=== PATIENT | male | born 1945 | race Caucasian/White ===

== ENCOUNTER 2020-08-20 17:19 | Emergency (ER) | payer MEDICARE ==
[2020-08-20 17:20] VITALS: TEMP 97.6
[2020-08-20 17:48] LABS: BASO # 0.1 (0.0-0.2); BASO % 1.4 % (0.0-2.0); EOS # 0.5 (0.0-0.7); EOS % 4.6 % (0-4.0); GRAN # 3.6 (1.4-6.5); GRAN % 34.6 % (42.2-75.2); HEMATOCRIT 39.2 % (42.0-52.0); HEMOGLOBIN 13.3 g/dl (13.5-18.0); LYMPH # 4.7 (1.2-3.4); MEAN CELL VOLUME 103 fl (80.0-100.0); MEAN CORPUSCULAR HEMOGLOBIN 35 pg (27.0-31.0); MEAN CORPUSCULAR HGB CONC 34 g/dl (33.0-37.0); MEAN PLATELET VOLUME 9.4 fl (7.4-10.4); MONO # 1.4 (0.1-0.6); MONO % 13.7 % (1.7-9.3); PLATELET COUNT 182 K/mm3 (130-400); RED BLOOD COUNT 3.82 M/mm3 (4.20-5.60); REDCELL DISTRIBUTION WIDTH-CV 12.4 % (11.5-14.5)
[2020-08-20 17:56] LABS: INR 0.9 (0.8-3.0); PROTHROMBIN TIME 10.3 SECONDS (9.7-12.8)
[2020-08-20 17:58] LABS: PARTIAL THROMBOPLASTIN TIME 31.7 SECONDS (26.0-37.0)
[2020-08-20 18:02] LABS: ALBUMIN 3.9 gm/dL (3.5-5.0); ALKALINE PHOSPHATASE 112 U/L (50-136); ANION GAP 14 mmol/L (7-16); AST,SGOT 49 U/L (15-37); BILIRUBIN,TOTAL 0.5 mg/dL (0.0-1.0); BLOOD UREA NITROGEN 6 mg/dL (9-20); CALCIUM 8.4 mg/dL (8.4-10.2); CARBON DIOXIDE 15 mmol/L (22-30); CHLORIDE 103 mmol/L (98-107); GLUCOSE 156 mg/dL (74-106); PHOSPHOROUS 4.6 mg/dL (2.5-4.5); POTASSIUM 4.3 mmol/L (3.4-5.0); SODIUM 132 mmol/L (137-145); TOTAL PROTEIN 6.7 gm/dL (6.4-8.2)
[2020-08-20 18:04] LABS: ALCOHOL(ethanol),MEDICAL < 10 mg/dL; C-REACTIVE PROTEIN < 0.5 mg/dL (0.0-0.9)
[2020-08-20 18:06] LABS: ALANINE AMINOTRANSFERASE 21 U/L (4-49)
[2020-08-20 18:11] LABS: TROPONIN-I 0.015 ng/mL (0.000-0.035)
[2020-08-20 18:16] LABS: PROLACTIN 96.9 ng/mL (3.7-17.9)
[2020-08-20 18:18] LABS: COLLECTION METHOD CATHETER
[2020-08-20] MEDS ORDERED: MAG-OX 400400 MG/TAB PO (18:20)
[2020-08-20] MEDS ORDERED: KLOR-CON20 MEQ PO (18:20)
[2020-08-20] MEDS ORDERED: ASPIRIN 81M81 MG/TA2 PO (18:21)
[2020-08-20] MEDS ORDERED: ONE-A-DAY ESSE1 EACH PO (18:21)
[2020-08-20] MEDS ORDERED: NATURE'S BLEND100 M2 PO (18:21)
[2020-08-20] MEDS ORDERED: LUTEIN20 M1 PO (18:21)
[2020-08-20] MEDS ORDERED: TYLENOL 325MG325 MG PO (18:22)
[2020-08-20] MEDS ORDERED: VITAMINE200 (18:22)
[2020-08-20] MEDS ORDERED: VITAMIN C500 MG PO (18:22)
[2020-08-20 18:28] LABS: PH 6 (5-8); SQUAMOUS EPITHELIAL None Seen /hpf; URINE APPEARANCE Hazy; URINE BACTERIA Moderate /hpf; URINE BILIRUBIN Negative (NEGATIVE); URINE BLOOD Negative (NEGATIVE); URINE COLOR Yellow; URINE GLUCOSE Negative (NEGATIVE); URINE KETONE Negative (NEGATIVE); URINE LEUKOCYTE ESTERASE 3+ (NEGATIVE); URINE NITRATE Positive (NEGATIVE); URINE PROTEIN(semi-quant) Negative (NEGATIVE); URINE RBC 0-2 /hpf; URINE UROBILINOGEN Negative (NEGATIVE)
[2020-08-20 18:35] LABS: TRICYCLIC ANTIDEPRESS URINE NEGATIVE
[2020-08-20 19:37] VITALS: BP 143/94; PULSE 125
== END 2020-08-20 19:51 | disposition short-term general hospital (02) ==
LOC: COL.ER 17:19
PROVIDERS: Emergency Medicine
DX: R56.9 Unspecified convulsions (principal); N39.0 Urinary tract infection, site not specified; Z86.59 Personal history of other mental and behavioral disorders; Z79.82 Long term (current) use of aspirin
CPT/HCPCS: J0696; J1953; J2060; J7030